=== PATIENT | female | born 1995 | race Caucasian/White ===

== ENCOUNTER 2019-11-15 07:41 | Day surgery (SDC) | payer BC ==
[~2019-11-15 07:41] MED LIST: Lactated Ringers 1,000 ML IV SCH; Sodium Chloride 0.9% 10 ML SDV IV PRN; Sodium Chloride 0.9% 10 ML Syringe FLUSH PRN; Sodium Chloride 0.9% 2.5 ML Syringe FLUSH PRN
[2019-11-15] MEDS ORDERED: Doxycycline 100 MG Cap PO ONE ×4 (08:00→11:00)
--- NOTE | 2019-11-15 08:25 | PCM.PREANE ---
Preanesthetic Assessment - Anesthesia/Transfusion/Family Hx Anesthesia History: Prior Anesthesia Without Reaction Family History of Anesthesia Reaction: No Transfusion History: No Prior Transfusion(s) Intubation History: Unknown - Review of Systems General: No Symptoms Pulmonary: No Symptoms Cardiovascular: No Symptoms Gastrointestinal: No Symptoms Neurological: No Symptoms Other: Reports: None - Physical Assessment Vital Signs: Last Vital Signs Temp 36.9 C 11/15/19 08:03 Pulse 75 11/15/19 08:03 Resp 16 11/15/19 08:03 BP 112/63 11/15/19 08:03 Pulse Ox 100 11/15/19 08:03 Height: 5 ft Weight: 68.946 kg ASA Class: 2 Mental Status: Alert & Oriented x3 Airway Class: Mallampati = 1 Dentition: Reports: Normal Dentition Thyro-Mental Finger Breadths: 3 Mouth Opening Finger Breadths: 3 ROM/Head Extension: Full Lungs: Clear to Auscultation, Normal Respiratory Effort Cardiovascular: Regular Rate, Regular Rhythm - Allergies Allergies/Adverse Reactions: Allergies Allergy/AdvReac Type Severity Reaction Status Date / Time No Known Allergies Allergy Verified 11/12/19 13:07 - Blood Blood Available: No - Anesthesia Plan Pre-Op Medication Ordered: None - Acknowledgements Anesthesia Type Planned: General Anesthesia Pt an Appropriate Candidate for the Planned Anesthesia: Yes Alternatives and Risks of Anesthesia Discussed w Pt/Guardian: Yes Pt/Guardian Understands and Agrees with Anesthesia Plan: Yes PreAnesthesia Questionnaire HEENT History: Reports: None Cardiovascular History: Reports: None Respiratory History: Reports: Asthma (mild) Gastrointestinal History: Reports: None Genitourinary History: Reports: None 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: Reports: Other (See Below) (first trimester miscarriage) Musculoskeletal History: Reports: None Neurological History: Reports: None Psychiatric History: Reports: None Endocrine/Metabolic History: Reports: None Hematologic History: Reports: None Immunologic History: Reports: None Oncologic (Cancer) History: Reports: None Dermatologic History: Reports: None - Past Surgical History Head Surgeries/Procedures: Reports: None HEENT Surgical History: Reports: Oral Surgery Cardiovascular Surgical History: Reports: None Respiratory Surgical History: Reports: None GI Surgical History: Reports: None Female Surgical History: Reports: None Endocrine Surgical History: Reports: None Neurological Surgical History: Reports: None Musculoskeletal Surgical History: Reports: None Oncologic Surgical History: Reports: None Dermatological Surgical History: Reports: None - SUBSTANCE USE Smoking Status *Q: Never Smoker - HOME MEDS Home Medications: Home Meds Albuterol [Ventolin HFA] 1 - 2 puff INH ASDIRECTED PRN 10/18/19 [History] Fluticasone/Salmeterol [Advair 250-50 Diskus] 1 puff INH QAM 10/18/19 [History] Fexofenadine [Idalia] 180 mg PO DAILY 11/12/19 [History] - CURRENT (IN HOUSE) MEDS Current Meds: Current Medications Doxycycline Hyclate (Vibramycin) 200 mg PO ONETIME ONE Stop: 11/15/19 08:31 Lactated Ringer's (Ringers, Lactated) 1,000 mls @ 500 mls/hr IV BOLUS MALLORY Sodium Chloride (Saline Flush) 10 ml FLUSH ASDIRECTED PRN PRN Reason: Keep Vein Open Sodium Chloride (Saline Flush) 2.5 ml FLUSH ASDIRECTED PRN PRN Reason: Keep Vein Open Sodium Chloride (Normal Saline) 10 ml IV ASDIRECTED PRN PRN Reason: IV Use Sodium Chloride (Saline Flush) 10 ml FLUSH ASDIRECTED PRN PRN Reason: Keep Vein Open Sodium Chloride (Saline Flush) 2.5 ml FLUSH ASDIRECTED PRN PRN Reason: Keep Vein Open Sodium Chloride (Normal Saline) 10 ml IV ASDIRECTED PRN PRN Reason: IV Use
[2019-11-15] MEDS ORDERED: fentaNYL 100 MCG/2 ML SDV ONE (09:17)
[2019-11-15] MEDS ORDERED: Propofol 200 MG/20 ML SDV ONE (09:17)
[2019-11-15] MEDS ORDERED: Midazolam 1 MG/ML 2 ML SDV ONE (09:17)
[2019-11-15] MEDS ORDERED: Ondansetron 4 MG/2 ML SDV ONE (09:51)
[2019-11-15] MEDS ORDERED: Dexamethasone 4 MG/ML 5 ML MDV ONE (09:51)
[2019-11-15] MEDS ORDERED: Atropine 0.1 MG/ML 10 ML Syringe IVPUSH PRN ×2 (09:59)
[2019-11-15] MEDS ORDERED: fentaNYL 100 MCG/2 ML SDV IVPUSH PRN (09:59)
[2019-11-15] MEDS ORDERED: Albuterol 0.083% 2.5 MG/3 ML Neb Soln NEB PRN (09:59)
[2019-11-15] MEDS ORDERED: EPINEPHrine 1:10,000 1 MG/10 ML Syringe IVPUSH PRN (09:59)
[2019-11-15] MEDS ORDERED: 50% Dextrose in Water 50 ML Syringe IVPUSH PRN (09:59)
[2019-11-15] MEDS ORDERED: Naloxone 0.4 MG/ML Syringe IVPUSH PRN (09:59)
[2019-11-15] MEDS ORDERED: HYDROmorphone 2 MG/ML Syringe IVPUSH PRN (10:00)
[2019-11-15] MEDS ORDERED: Acetaminophen/oxyCODONE 325-5 MG Tab PO PRN (10:10)
--- NOTE | 2019-11-15 10:14 | PCM.OPNOTE ---
- General Post-Op/Procedure Note Date of Surgery/Procedure: 11/15/19 Operative Procedure(s): Suction Dilatation and Curettage Findings: EUA showed 8 week anteverted uterus Pre Op Diagnosis: Incomplete Post-Op Diagnosis: same Anesthesia Technique: General ET Tube Primary Surgeon: Hamida Raya Anesthesia Provider: Julia Lazo Pathology: Product of conception Fluid Replacement, Intraop: 1,000 EBL in mLs: 5 Complications: None Condition: Good
--- NOTE | 2019-11-15 10:34 | PCM.POSTAN ---
POST ANESTHESIA ASSESSMENT - MENTAL STATUS Mental Status: Alert - VITAL SIGNS Vital Signs: Last Vital Signs Temp 36.1 C 11/15/19 10:13 Pulse 79 11/15/19 10:28 Resp 13 11/15/19 10:28 BP 117/56 L 11/15/19 10:28 Pulse Ox 99 11/15/19 10:28 - RESPIRATORY Respiratory Status: Respiratory Rate WNL - CARDIOVASCULAR CV Status: Pulse Rate WNL - GASTROINTESTINAL GI Status: No Symptoms - POST OP HYDRATION Hydration Status: Adequate & Stable
--- NOTE | 2019-11-15 11:33 | PCM48HPAN ---
Post Anesthesia Note - EVALUATION WITHIN 48HRS OF ANESTHETIC Vital Signs in Normal Range: Yes Patient Participated in Evaluation: Yes Respiratory Function Stable: Yes Airway Patent: Yes Cardiovascular Function Stable: Yes Hydration Status Stable: Yes Pain Control Satisfactory: Yes Nausea and Vomiting Control Satisfactory: Yes Mental Status Recovered: Yes Vital Signs: Last Vital Signs Temp 36.1 C 11/15/19 10:13 Pulse 77 11/15/19 10:33 Resp 13 11/15/19 10:33 BP 116/58 L 11/15/19 10:33 Pulse Ox 99 11/15/19 10:33 - COMMENTS/OBSERVATIONS Free Text/Narrative:: no anesthesia problems
--- NOTE | 2019-11-15 14:23 | OR ---
SURGEON: CARLOS TADEO DATE OF PROCEDURE: 11/15/2019 PREOPERATIVE DIAGNOSIS: A 23-year-old with incomplete , retained products POSTOPERATIVE DIAGNOSIS: A 23-year-old with incomplete , retained products PROCEDURE: Suction dilatation and curettage. ESTIMATED BLOOD LOSS: 5 mL. IV FLUID: 1000. ANESTHESIA: General. COMPLICATIONS: None. PATHOLOGY: Product of conception. BRIEF HISTORY: A 23-year-old who came in for new OB appointment, was found to have a missed AB. The patient desired suction curettage, which she declined and wanted a medical management. She had received Cytotec. The patient came for a followup visit, also noted to have some bleeding, and she had ultrasound done that showed some retained product. As a result, the patient was counseled for Cytotec replacement versus the suction D and C. The patient has opted for a suction D and C. She was explained the risks, benefits, and alternatives. Risks include infection, bleeding, damage to the surrounding structures. The patient was given the opportunity to ask questions. DESCRIPTION OF PROCEDURE: The patient was taken to the operating room where she was placed in the dorsal lithotomy position with Jaun stirrups. She was prepared and draped in the dorsal lithotomy position with the Jaun stirrups under sterile conditions. The vagina was prepped in normal sterile fashion and a straight catheter was done. The cervix was exposed with the bivalve speculum and the anterior lip of the cervix was grasped with the Allis forceps. The cervix was dilated to accommodate the 8 mm curved curette. The suction curette was advanced to the fundus and the suction was started. A moderate amount of product of conception was retrieved. Then, the size 3 sharp curette was placed inside the uterus to the fundus and gentle curette on every side. Then again, the suction curette was placed in without any difficulty and the remaining debris was removed from the uterus. The product was retrieved. The suction was then removed and the speculum was removed. Allis was removed. The patient tolerated the procedure well. All instrument and pad counts were correct x2. The patient tolerated the procedure and will go home with 100 mg of doxycycline. She will follow up in 2 weeks in the clinic. The patient tolerated the procedure well and was taken to the recovery room in stable condition. ISAIAH / GEM /[id number] FELIBERTO
== END 2019-11-15 11:32 | disposition home or self-care (01) ==
LOC: MW.SDS 07:41
PROVIDERS: ATTEND Obstetrics & Gynecology
DX: O03.4 Incomplete spontaneous abortion without complication (principal); J45.909 Unspecified asthma, uncomplicated; Z79.51 Long term (current) use of inhaled steroids; Z91.09 Other allergy status, other than to drugs and biological substances
CPT/HCPCS: 36415; 59812; 85027; 86850; 86900; 86901; A9270; J0131; J1100; J2001; J2250; J2405; J2704; J3010; J7120

== ENCOUNTER 2021-04-11 03:02 | Inpatient (IN) | payer BC ==
[2021-04-11] MEDS ORDERED: Misoprostol 200 MCG Tab PO PRN (04:04)
[2021-04-11] MEDS ORDERED: Sodium Chloride 0.9% 10 ML Syringe FLUSH PRN (04:04)
[2021-04-11] MEDS ORDERED: Nalbuphine 10 MG/1 ML Vial IVPUSH PRN (04:04)
[2021-04-11] MEDS ORDERED: Butorphanol 1 MG/ML SDV IVPUSH PRN (04:04)
[2021-04-11] MEDS ORDERED: Lidocaine 1% 50 ML MDV INJECT PRN (04:04)
[2021-04-11] MEDS ORDERED: Water For Irrigation,Sterile 1,000 ML Container IRR PRN (04:04)
[2021-04-11] MEDS ORDERED: Sodium Chloride 0.9% 10 ML SDV IV PRN (04:04)
[2021-04-11] MEDS ORDERED: Methylergonovine 0.2 MG/1 ML Amp IM PRN (04:04)
[2021-04-11] MEDS ORDERED: Sodium Chloride 0.9% 2.5 ML Syringe FLUSH PRN (04:04)
[2021-04-11] MEDS ORDERED: Carboprost Tromethamine 250 MCG/1 ML Amp IM PRN (04:04)
[2021-04-11] MEDS ORDERED: Tranexamic Acid 1,000 MG in Sodium Chloride 0.9% 100 ML IV PRN (04:04)
[2021-04-11] MEDS ORDERED: Terbutaline 1 MG/ML SDV SUBCUT PRN (04:07)
[2021-04-11] MEDS ORDERED: Misoprostol 25 MCG (1/4 of 100 MCG) Tab VAG PRN (04:07)
[2021-04-11] MEDS ORDERED: Oxytocin/0.9 % Sodium Chloride 30 UNIT/500 ML BAG IV SCH (04:15)
[2021-04-11] MEDS: Misoprostol 25 MCG (1/4 of 100 MCG) Tab VAG PRN ×3 (08:39→16:55)
[2021-04-11 11:50] LABS: BLOOD UREA NITROGEN,BUN 12 mg/dL (7.0-18.0); CARBON DIOXIDE,CO2 22.7 mmol/L (21.0-32.0); CHLORIDE,CL 104 mmol/L (98-107); GLUCOSE RANDOM 70 mg/dL (74-106); POTASSIUM,K 3.9 mmol/L (3.5-5.1); SODIUM,NA 138 mmol/L (136-145)
[2021-04-11] MEDS: Lactated Ringers 1,000 ML IV SCH ×2 (21:55→22:56)
[2021-04-11] MEDS: Oxytocin/0.9 % Sodium Chloride 30 UNIT/500 ML BAG IV SCH (22:04)
[2021-04-11] MEDS ORDERED: Bupivacaine 0.25% 10 ML SDV ONE (22:20)
[2021-04-11] MEDS ORDERED: Ropivacaine HCl/PF 200 ML ONE (22:20)
--- NOTE | 2021-04-11 22:51 | PCM.PREANE ---
Preanesthetic Assessment - Anesthesia/Transfusion/Family Hx Anesthesia History: Prior Anesthesia Reaction Other Type of Anesthesia Reaction Comment: difficult breathing Transfusion History: No Prior Transfusion(s) Intubation History: Unknown - Review of Systems General: No Symptoms Pulmonary: No Symptoms Cardiovascular: No Symptoms Gastrointestinal: No Symptoms Neurological: No Symptoms Other: Reports: None - Physical Assessment NPO Status Date: 04/11/21 NPO Status Time: 18:00 Height: 5 ft Weight: 207 lb ASA Class: 2 Mental Status: Alert & Oriented x3 Dentition: Reports: Normal Dentition ROM/Head Extension: Full Lungs: Clear to Auscultation, Normal Respiratory Effort Cardiovascular: Regular Rate, Regular Rhythm - Lab Values: Laboratory Last Values WBC 7.73 K/uL (4.0-11.0) 04/11/21 03:55 RBC 3.40 M/uL (4.30-5.90) L 04/11/21 03:55 Hgb 10.7 g/dL (12.0-16.0) L 04/11/21 03:55 Hct 31.3 % (36.0-46.0) L 04/11/21 03:55 MCV 92.1 fL (80.0-98.0) 04/11/21 03:55 MCH 31.5 pg (27.0-32.0) 04/11/21 03:55 MCHC 34.2 g/dL (31.0-37.0) 04/11/21 03:55 RDW Std Deviation 46.0 fl (28.0-62.0) 04/11/21 03:55 RDW Coeff of June 14 % (11.0-15.0) 04/11/21 03:55 Plt Count 262 K/uL (150-400) 04/11/21 03:55 MPV 10.70 fL (7.40-12.00) 04/11/21 03:55 Nucleated RBC % 0.0 /100WBC 04/11/21 03:55 Nucleated RBCs # 0 K/uL 04/11/21 03:55 Sodium 138 mmol/L (136-145) 04/11/21 11:16 Potassium 3.9 mmol/L (3.5-5.1) 04/11/21 11:16 Chloride 104 mmol/L (98-107) 04/11/21 11:16 Carbon Dioxide 22.7 mmol/L (21.0-32.0) 04/11/21 11:16 BUN 12 mg/dL (7.0-18.0) 04/11/21 11:16 Creatinine 0.7 mg/dL (0.6-1.0) 04/11/21 11:16 Est Cr Clr Drug Dosing 86.71 mL/min 04/11/21 11:16 Estimated GFR (MDRD) > 60.0 ml/min 04/11/21 11:16 Glucose 70 mg/dL (74-106) L 04/11/21 11:16 Uric Acid 5.4 mg/dL (2.6-7.2) 04/11/21 11:16 Calcium 8.6 mg/dL (8.5-10.1) 04/11/21 11:16 Total Bilirubin 0.3 mg/dL (0.2-1.0) 04/11/21 11:16 AST 21 IU/L (15-37) 04/11/21 11:16 ALT 22 IU/L (14-63) 04/11/21 11:16 Alkaline Phosphatase 145 U/L (46-116) H 04/11/21 11:16 Total Protein 6.2 g/dL (6.4-8.2) L 04/11/21 11:16 Albumin 2.6 g/dL (3.4-5.0) L 04/11/21 11:16 Globulin 3.6 g/dL (2.6-4.0) 04/11/21 11:16 Albumin/Globulin Ratio 0.7 (0.9-1.6) L 04/11/21 11:16 Ur Random Creatinine 116.2 mg/dL 04/11/21 11:44 U Random Total Protein 15.9 mg/dL (<11.9) H 04/11/21 11:44 Protein/Creatinin Ratio 0.1 04/11/21 11:44 Blood Type A POSITIVE 04/11/21 03:55 Antibody Screen NEGATIVE 04/11/21 03:55 - Allergies Allergies/Adverse Reactions: Allergies Allergy/AdvReac Type Severity Reaction Status Date / Time pollen Allergy Difficulty Uncoded 03/22/21 14:16 Breathing - Blood Blood Available: Yes Product(s) Available: PRBC - Anesthesia Plan Pre-Op Medication Ordered: None - Acknowledgements Anesthesia Type Planned: Epidural Pt an Appropriate Candidate for the Planned Anesthesia: Yes Alternatives and Risks of Anesthesia Discussed w Pt/Guardian: Yes Pt/Guardian Understands and Agrees with Anesthesia Plan: Yes PreAnesthesia Questionnaire HEENT History: Reports: None Cardiovascular History: Reports: None Respiratory History: Reports: Asthma Gastrointestinal History: Reports: None Genitourinary History: Reports: None 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: , 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 Musculoskeletal History: Reports: None Neurological History: Reports: None Psychiatric History: Reports: None Endocrine/Metabolic History: Reports: None Hematologic History: Reports: None Immunologic History: Reports: None Oncologic (Cancer) History: Reports: None Dermatologic History: Reports: None - Infectious Disease History Infectious Disease History: Reports: Novel Coronavirus - Past Surgical History Head Surgeries/Procedures: Reports: None HEENT Surgical History: Reports: Oral Surgery Cardiovascular Surgical History: Reports: None Respiratory Surgical History: Reports: None GI Surgical History: Reports: None Female Surgical History: Reports: None Endocrine Surgical History: Reports: None Neurological Surgical History: Reports: None Musculoskeletal Surgical History: Reports: None Oncologic Surgical History: Reports: None Dermatological Surgical History: Reports: None - SUBSTANCE USE Tobacco Use Status *Q: Never Tobacco User Second Hand Smoke Exposure: No Recreational Drug Use History: No - HOME MEDS Home Medications: Home Meds Albuterol [Ventolin HFA] 1 - 2 puff INH ASDIRECTED PRN 10/18/19 [History] Fluticasone Propion/Salmeterol [Advair 250-50 Diskus] 1 puff INH QAM 10/18/19 [History] Fexofenadine [Idalia] 180 mg PO DAILY 11/12/19 [History] Omeprazole Magnesium [Prilosec Otc] 20 mg PO DAILY 03/22/21 [History] - CURRENT (IN HOUSE) MEDS Current Meds: Current Medications Butorphanol Tartrate (Butorphanol 1 Mg/Ml Sdv) 1 mg IVPUSH Q1H PRN PRN Reason: Pain (severe 7-10) Carboprost Tromethamine (Carboprost Tromethamine 250 Mcg/1 Ml Amp) 250 mcg IM ASDIRECTED PRN PRN Reason: Post Hemorrhage Oxytocin/Sodium Chloride (Oxytocin 30 Unit/500 Ml-Ns) 30 unit in 500 mls @ 500 mls/hr IV TITRATE MALLORY Tranexamic Acid 1,000 mg/ (Sodium Chloride) 110 mls @ 660 mls/hr IV ONETIME PRN PRN Reason: Bleeding Lactated Ringer's (Ringers, Lactated) 1,000 mls @ 150 mls/hr IV ASDIRECTED MALLORY Last Admin: 04/11/21 21:55 Dose: 999 mls/hr Documented by: Oxytocin/Sodium Chloride (Oxytocin 30 Unit/500 Ml-Ns) 30 unit in 500 mls @ 2 mls/hr IV TITRATE MALLORY; Protocol Last Titration: 04/11/21 22:34 Dose: 4 munits/min, 4 mls/hr Documented by: Lidocaine HCl (Lidocaine 1% 50 Ml Mdv) 50 ml INJECT ONETIME PRN PRN Reason: Laceration repair Methylergonovine Maleate (Methylergonovine 0.2 Mg/1 Ml Amp) 0.2 mg IM ASDIRECTED PRN PRN Reason: Post Hemorrhage Misoprostol (Misoprostol 200 Mcg Tab) 200 mcg PO ONETIME PRN PRN Reason: Post Hemorrhage Misoprostol (Misoprostol 25 Mcg (1/4 Of 100 Mcg) Tab) 25 mcg VAG ONETIME PRN PRN Reason: Cervical Ripening Last Admin: 04/11/21 04:32 Dose: 25 mcg Documented by: Misoprostol (Misoprostol 25 Mcg (1/4 Of 100 Mcg) Tab) 25 mcg VAG Q4H PRN PRN Reason: Cervical Ripening Last Admin: 04/11/21 16:55 Dose: 25 mcg Documented by: Nalbuphine HCl (Nalbuphine 10 Mg/1 Ml Vial) 10 mg IVPUSH Q1H PRN PRN Reason: Pain (severe 7-10) Sodium Chloride (Sodium Chloride 0.9% 10 Ml Syringe) 10 ml FLUSH ASDIRECTED PRN PRN Reason: Keep Vein Open Sodium Chloride (Sodium Chloride 0.9% 2.5 Ml Syringe) 2.5 ml FLUSH ASDIRECTED PRN PRN Reason: Keep Vein Open Sodium Chloride (Sodium Chloride 0.9% 10 Ml Sdv) 10 ml IV ASDIRECTED PRN PRN Reason: IV Use Sterile Water (Water For Irrigation,Sterile 1,000 Ml Container) 1,000 ml IRR ASDIRECTED PRN PRN Reason: delivery Terbutaline Sulfate (Terbutaline 1 Mg/Ml Sdv) 0.25 mg SUBCUT ASDIRECTED PRN PRN Reason: Tacysystole Discontinued Medications Bupivacaine HCl (Bupivacaine 0.25% 10 Ml Sdv) Confirm Administered Dose 10 ml .ROUTE .STK-MED ONE Stop: 04/11/21 22:21 Ropivacaine (Naropin 0.2%) Confirm Administered Dose 200 mls @ as directed .ROUTE .STK-MED ONE Stop: 04/11/21 22:21 - Pre-Procedure Checklist Attending Provider Aware: Yes Chart Reviewed: Yes Consent Signed: Yes Labs Reviewed: Yes VS/FHR Reviewed: Yes Patient Identification Confirmation Method: Reports: Verbal Patient Pt an Appropriate Candidate for the Planned Anesthesia: Yes Alternatives and Risks of Anesthesia Discussed w Pt/Guardian: Yes - Procedure Procedure Start Date: 04/11/21 Procedure Start Time: 22:[address]: Reports: Blood Pressure, Heart Rate, SPO2 Functional IV: Yes Safety Measures: Reports: Patient Identified, Procedure Verified, Site Verified, Procedure Time Out Patient Position: Reports: Sitting Prep: Reports: Betadine x3, Sterile Drape Local Anesthetic: Reports: Intradermal Wheal w Lidocaine 1% Regional Placement Level: Reports: L3-4 Needle: Reports: 17 g Touhy Approach: Reports: Midline Technique: Reports: ROBBIE Plastic Syringe Parasthesia: Reports: None Fluid Obtained: Reports: None Test Dose Time: 22:32 Test Dose Medication: Reports: Lidocaine 1.5% w Epinephrine 1:200,000 Test Dose Response: Reports: Negative Loading Dose Time: 22:32 Loading Dose Medication: bupivicaine 0.25% 10cc Loading Dose Patient Position: sitting Continuous Infusion Start Time: 22:25 Continuous Infusion Medication: ropivicaine 0.2% Continuous Infusion Rate: 14 Continuous Infusion PCS Bolus Option: 4 Continuous Infusion Lockout Dose (cc/hr): 26 Patient Position Post Placement: Reports: Supline/ADAM VS and FHR Monitored in Unit Post Placement: Yes Procedure End Date: 04/11/21 Procedure End Time: 23:25
[2021-04-12] MEDS: Lactated Ringers 1,000 ML IV SCH ×4 (05:59→23:38)
[2021-04-12] MEDS ORDERED: Ropivacaine HCl/PF 200 ML ONE ×2 (12:20→23:43)
[2021-04-12] MEDS: Oxytocin/0.9 % Sodium Chloride 30 UNIT/500 ML BAG IV SCH (13:49)
[2021-04-13] MEDS ORDERED: Citric Acid/Sodium Citrate Solution 30 ML Cup PO ONE (06:27)
[2021-04-13] MEDS ORDERED: ceFAZolin 2 GM in Premix Bag 1 BAG IV ONE (06:27)
[2021-04-13] MEDS ORDERED: Morphine PF 10 MG/10 ML SDV ONE (06:32)
[2021-04-13] MEDS ORDERED: Ondansetron 4 MG/2 ML SDV ONE (06:33)
[2021-04-13] MEDS ORDERED: Lidocaine 2% 5 ML SDV ONE (06:33)
[2021-04-13] MEDS ORDERED: Sodium Chloride 0.9% 20 ML ONE (06:45)
[2021-04-13] MEDS ORDERED: ceFAZolin 1 GM Vial ONE (06:45)
[2021-04-13] MEDS: Lactated Ringers 1,000 ML IV SCH ×2 (06:46→08:52)
[2021-04-13] MEDS ORDERED: Oxytocin 10 Units/1 ML SDV ONE (07:00)
[2021-04-13] MEDS ORDERED: Albuterol 0.083% 2.5 MG/3 ML Neb Soln NEB PRN (07:48)
[2021-04-13] MEDS ORDERED: HYDROmorphone 2 MG/ML Syringe IVPUSH PRN (07:48)
[2021-04-13] MEDS ORDERED: ePHEDrine 50 MG/ML SDV IVPUSH PRN (07:48)
[2021-04-13] MEDS ORDERED: diphenhydrAMINE 50 MG/ML SDV IVPUSH PRN ×2 (07:48→09:15)
[2021-04-13] MEDS ORDERED: Ondansetron 4 MG/2 ML SDV IVPUSH PRN ×3 (07:48→09:15)
[2021-04-13] MEDS ORDERED: Metoclopramide 10 MG/2 ML SDV IVPUSH PRN (07:48)
[2021-04-13] MEDS ORDERED: Morphine 2 MG/ML SYRINGE IVPUSH PRN (07:48)
[2021-04-13] MEDS ORDERED: Naloxone 0.4 MG/ML Syringe IVPUSH PRN ×2 (07:48)
[2021-04-13] MEDS ORDERED: fentaNYL 100 MCG/2 ML SDV IVPUSH PRN ×2 (07:48)
[2021-04-13] MEDS ORDERED: Nalbuphine 10 MG/1 ML Vial IVPUSH PRN (07:48)
--- NOTE | 2021-04-13 07:48 | PCM.PREANE ---
Preanesthetic Assessment - Anesthesia/Transfusion/Family Hx Anesthesia History: Prior Anesthesia Reaction Other Type of Anesthesia Reaction Comment: difficult breathing Transfusion History: No Prior Transfusion(s) Intubation History: Unknown - Review of Systems General: No Symptoms Pulmonary: No Symptoms Cardiovascular: No Symptoms Gastrointestinal: No Symptoms Neurological: No Symptoms Other: Reports: None - Physical Assessment NPO Status Date: 04/11/21 NPO Status Time: 18:00 Height: 5 ft Weight: 207 lb ASA Class: 3 Mental Status: Alert & Oriented x3 Airway Class: Mallampati = 2 Dentition: Reports: Normal Dentition Thyro-Mental Finger Breadths: 3 Mouth Opening Finger Breadths: 3 ROM/Head Extension: Full Lungs: Clear to Auscultation, Normal Respiratory Effort Cardiovascular: Regular Rate, Regular Rhythm - Lab Values: Laboratory Last Values WBC 7.73 K/uL (4.0-11.0) 04/11/21 03:55 RBC 3.40 M/uL (4.30-5.90) L 04/11/21 03:55 Hgb 10.7 g/dL (12.0-16.0) L 04/11/21 03:55 Hct 31.3 % (36.0-46.0) L 04/11/21 03:55 MCV 92.1 fL (80.0-98.0) 04/11/21 03:55 MCH 31.5 pg (27.0-32.0) 04/11/21 03:55 MCHC 34.2 g/dL (31.0-37.0) 04/11/21 03:55 RDW Std Deviation 46.0 fl (28.0-62.0) 04/11/21 03:55 RDW Coeff of June 14 % (11.0-15.0) 04/11/21 03:55 Plt Count 262 K/uL (150-400) 04/11/21 03:55 MPV 10.70 fL (7.40-12.00) 04/11/21 03:55 Nucleated RBC % 0.0 /100WBC 04/11/21 03:55 Nucleated RBCs # 0 K/uL 04/11/21 03:55 Sodium 138 mmol/L (136-145) 04/11/21 11:16 Potassium 3.9 mmol/L (3.5-5.1) 04/11/21 11:16 Chloride 104 mmol/L (98-107) 04/11/21 11:16 Carbon Dioxide 22.7 mmol/L (21.0-32.0) 04/11/21 11:16 BUN 12 mg/dL (7.0-18.0) 04/11/21 11:16 Creatinine 0.7 mg/dL (0.6-1.0) 04/11/21 11:16 Est Cr Clr Drug Dosing 86.71 mL/min 04/11/21 11:16 Estimated GFR (MDRD) > 60.0 ml/min 04/11/21 11:16 Glucose 70 mg/dL (74-106) L 04/11/21 11:16 Uric Acid 5.4 mg/dL (2.6-7.2) 04/11/21 11:16 Calcium 8.6 mg/dL (8.5-10.1) 04/11/21 11:16 Total Bilirubin 0.3 mg/dL (0.2-1.0) 04/11/21 11:16 AST 21 IU/L (15-37) 04/11/21 11:16 ALT 22 IU/L (14-63) 04/11/21 11:16 Alkaline Phosphatase 145 U/L (46-116) H 04/11/21 11:16 Total Protein 6.2 g/dL (6.4-8.2) L 04/11/21 11:16 Albumin 2.6 g/dL (3.4-5.0) L 04/11/21 11:16 Globulin 3.6 g/dL (2.6-4.0) 04/11/21 11:16 Albumin/Globulin Ratio 0.7 (0.9-1.6) L 04/11/21 11:16 Ur Random Creatinine 116.2 mg/dL 04/11/21 11:44 U Random Total Protein 15.9 mg/dL (<11.9) H 04/11/21 11:44 Protein/Creatinin Ratio 0.1 04/11/21 11:44 Blood Type A POSITIVE 04/11/21 03:55 Antibody Screen NEGATIVE 04/11/21 03:55 - Allergies Allergies/Adverse Reactions: Allergies Allergy/AdvReac Type Severity Reaction Status Date / Time pollen Allergy Difficulty Uncoded 03/22/21 14:16 Breathing - Blood Blood Available: Yes Product(s) Available: PRBC - Acknowledgements Anesthesia Type Planned: Spinal Pt an Appropriate Candidate for the Planned Anesthesia: Yes Alternatives and Risks of Anesthesia Discussed w Pt/Guardian: Yes Pt/Guardian Understands and Agrees with Anesthesia Plan: Yes PreAnesthesia Questionnaire HEENT History: Reports: None Cardiovascular History: Reports: None Respiratory History: Reports: Asthma, Other (See Below) (Covid positive but assymptomatic) Gastrointestinal History: Reports: None Genitourinary History: Reports: None [employer] History: Reports: , Spontaneous Musculoskeletal History: Reports: None Neurological History: Reports: None Psychiatric History: Reports: None Endocrine/Metabolic History: Reports: None Hematologic History: Reports: None Immunologic History: Reports: None Oncologic (Cancer) History: Reports: None Dermatologic History: Reports: None - Infectious Disease History Infectious Disease History: Reports: Novel Coronavirus - Past Surgical History Head Surgeries/Procedures: Reports: None HEENT Surgical History: Reports: Oral Surgery Cardiovascular Surgical History: Reports: None Respiratory Surgical History: Reports: None GI Surgical History: Reports: None Female Surgical History: Reports: None Endocrine Surgical History: Reports: None Neurological Surgical History: Reports: None Musculoskeletal Surgical History: Reports: None Oncologic Surgical History: Reports: None Dermatological Surgical History: Reports: None - SUBSTANCE USE Tobacco Use Status *Q: Never Tobacco User Second Hand Smoke Exposure: No Recreational Drug Use History: No - HOME MEDS Home Medications: Home Meds Albuterol [Ventolin HFA] 1 - 2 puff INH ASDIRECTED PRN 10/18/19 [History] Fluticasone Propion/Salmeterol [Advair 250-50 Diskus] 1 puff INH QAM 10/18/19 [History] Fexofenadine [Idalia] 180 mg PO DAILY 11/12/19 [History] Omeprazole Magnesium [Prilosec Otc] 20 mg PO DAILY 03/22/21 [History] - CURRENT (IN HOUSE) MEDS Current Meds: Current Medications Butorphanol Tartrate (Butorphanol 1 Mg/Ml Sdv) 1 mg IVPUSH Q1H PRN PRN Reason: Pain (severe 7-10) Carboprost Tromethamine (Carboprost Tromethamine 250 Mcg/1 Ml Amp) 250 mcg IM ASDIRECTED PRN PRN Reason: Post Hemorrhage Oxytocin/Sodium Chloride (Oxytocin 30 Unit/500 Ml-Ns) 30 unit in 500 mls @ 500 mls/hr IV TITRATE MALLORY Tranexamic Acid 1,000 mg/ (Sodium Chloride) 110 mls @ 660 mls/hr IV ONETIME PRN PRN Reason: Bleeding Lactated Ringer's (Ringers, Lactated) 1,000 mls @ 150 mls/hr IV ASDIRECTED MALLORY Last Admin: 04/13/21 06:46 Dose: 150 mls/hr Documented by: Oxytocin/Sodium Chloride (Oxytocin 30 Unit/500 Ml-Ns) 30 unit in 500 mls @ 2 mls/hr IV TITRATE MALLORY; Protocol Last Titration: 04/13/21 06:20 Dose: 0 munits/min, 0 mls/hr Documented by: Lidocaine HCl (Lidocaine 1% 50 Ml Mdv) 50 ml INJECT ONETIME PRN PRN Reason: Laceration repair Methylergonovine Maleate (Methylergonovine 0.2 Mg/1 Ml Amp) 0.2 mg IM ASDIRECTED PRN PRN Reason: Post Hemorrhage Misoprostol (Misoprostol 200 Mcg Tab) 200 mcg PO ONETIME PRN PRN Reason: Post Hemorrhage Misoprostol (Misoprostol 25 Mcg (1/4 Of 100 Mcg) Tab) 25 mcg VAG ONETIME PRN PRN Reason: Cervical Ripening Last Admin: 04/11/21 04:32 Dose: 25 mcg Documented by: Misoprostol (Misoprostol 25 Mcg (1/4 Of 100 Mcg) Tab) 25 mcg VAG Q4H PRN PRN Reason: Cervical Ripening Last Admin: 04/11/21 16:55 Dose: 25 mcg Documented by: Nalbuphine HCl (Nalbuphine 10 Mg/1 Ml Vial) 10 mg IVPUSH Q1H PRN PRN Reason: Pain (severe 7-10) Sodium Chloride (Sodium Chloride 0.9% 10 Ml Syringe) 10 ml FLUSH ASDIRECTED PRN PRN Reason: Keep Vein Open Sodium Chloride (Sodium Chloride 0.9% 2.5 Ml Syringe) 2.5 ml FLUSH ASDIRECTED PRN PRN Reason: Keep Vein Open Sodium Chloride (Sodium Chloride 0.9% 10 Ml Sdv) 10 ml IV ASDIRECTED PRN PRN Reason: IV Use Sterile Water (Water For Irrigation,Sterile 1,000 Ml Container) 1,000 ml IRR ASDIRECTED PRN PRN Reason: delivery Terbutaline Sulfate (Terbutaline 1 Mg/Ml Sdv) 0.25 mg SUBCUT ASDIRECTED PRN PRN Reason: Tacysystole Discontinued Medications Bupivacaine HCl (Bupivacaine 0.25% 10 Ml Sdv) Confirm Administered Dose 10 ml .ROUTE .STK-MED ONE Stop: 04/11/21 22:21 Cefazolin Sodium (Cefazolin 1 Gm Vial) Confirm Administered Dose 2 gm .ROUTE .STK-MED ONE Stop: 04/13/21 06:46 Citric Acid/Sodium Citrate (Citric Acid/Sodium Citrate Solution 30 Ml Cup) 30 ml PO ONETIME ONE Stop: 04/13/21 06:28 Ropivacaine (Naropin 0.2%) Confirm Administered Dose 200 mls @ as directed .ROUTE .STK-MED ONE Stop: 04/11/21 22:21 Ropivacaine (Naropin 0.2%) Confirm Administered Dose 200 mls @ as directed .ROUTE .STK-MED ONE Stop: 04/12/21 12:21 Ropivacaine (Naropin 0.2%) Confirm Administered Dose 200 mls @ as directed .ROUTE .STK-MED ONE Stop: 04/12/21 23:44 Cefazolin Sodium/Dextrose 2 gm (/ Premix) 50 mls @ 100 mls/hr IV ONETIME ONE Stop: 04/13/21 06:56 Sodium Chloride (Normal Saline) Confirm Administered Dose 20 mls @ as directed .ROUTE .STK-MED ONE Stop: 04/13/21 06:46 Lidocaine (Lidocaine 2% 5 Ml Sdv) Confirm Administered Dose 5 ml .ROUTE .STK-MED ONE Stop: 04/13/21 06:34 Morphine Sulfate (Morphine Pf 10 Mg/10 Ml Sdv) Confirm Administered Dose 10 mg .ROUTE .STK-MED ONE Stop: 04/13/21 06:33 Ondansetron HCl (Ondansetron 4 Mg/2 Ml Sdv) Confirm Administered Dose 4 mg .ROUTE .STK-MED ONE Stop: 04/13/21 06:34 Oxytocin (Oxytocin 10 Units/1 Ml Sdv) Confirm Administered Dose 30 unit .ROUTE .STK-MED ONE Stop: 04/13/21 07:01
[2021-04-13] MEDS ORDERED: Ketorolac 30 MG/ML SDV ONE (08:22)
--- NOTE | 2021-04-13 09:07 | PCM.POSTAN ---
POST ANESTHESIA ASSESSMENT - MENTAL STATUS Mental Status: Alert, Oriented - RESPIRATORY Respiratory Status: Respiratory Rate WNL, Airway Patent, O2 Saturation Stable - CARDIOVASCULAR CV Status: Pulse Rate WNL, Blood Pressure Stable - GASTROINTESTINAL GI Status: No Symptoms - POST OP HYDRATION Hydration Status: Adequate & Stable
--- NOTE | 2021-04-13 09:08 | PCM48HPAN ---
Post Anesthesia Note - EVALUATION WITHIN 48HRS OF ANESTHETIC Vital Signs in Normal Range: Yes Patient Participated in Evaluation: Yes Respiratory Function Stable: Yes Airway Patent: Yes Cardiovascular Function Stable: Yes Hydration Status Stable: Yes Pain Control Satisfactory: Yes Nausea and Vomiting Control Satisfactory: Yes Mental Status Recovered: Yes
[2021-04-13] MEDS ORDERED: Bisacodyl 10 MG Supp RECTAL PRN (09:15)
[2021-04-13] MEDS ORDERED: Misoprostol 200 MCG Tab RECTAL PRN (09:15)
[2021-04-13] MEDS ORDERED: Oxytocin 10 Units/1 ML SDV IM PRN (09:15)
[2021-04-13] MEDS ORDERED: Lanolin 100% Cream 7 GM Tube TOP PRN (09:15)
[2021-04-13] MEDS ORDERED: Tranexamic Acid 1,000 MG in Sodium Chloride 0.9% 100 ML IV PRN (09:15)
[2021-04-13] MEDS ORDERED: Methylergonovine 0.2 MG/1 ML Amp IM PRN (09:15)
[2021-04-13] MEDS ORDERED: Lactated Ringers 1,000 ML IV SCH (09:15)
[2021-04-13] MEDS: Ketorolac 30 MG/ML SDV IVPUSH SCH ×3 (09:30→21:00)
[2021-04-13] MEDS: Docusate Sodium 100 MG Cap PO SCH (21:02)
--- NOTE | 2021-04-14 00:44 | OR ---
SURGEON: Juan Francisco Cowan MD DATE OF PROCEDURE: 04/13/2021 INDICATION FOR PROCEDURE: A 25-year-old G3, P 0-0-2-0 at 39 weeks and 3 days admitted for induction of labor due to suspected macrosomia. The patient had serial growth ultrasounds with an estimated weight of 4300 g. She had otherwise uncomplicated . GBS negative. Induction was started with 4 doses of Cytotec. She progressed to 3 cm dilated. Pitocin was then started. She received an epidural with good pain control. AROM was performed with clear fluid. An IUPC was placed since she did not make cervical change from 3 cm after about 8 hours on Pitocin. She continued to make cervical change but was very slowly. After about 24 hours, she became 6 cm dilated and the head had descended to 0 station. In the next 3 hours, she did progress to fully dilated and with the urge to push. The heart rate tracing is mostly category 1 with periods of category 2 tracing with minimal variability. She then pushed with contractions for about 2.5 hours. However, she made minimal descent and the patient had become exhausted and was requesting a section. Discussed with the patient that her chances of vaginal delivery is low considering she had minimal descent with pushing and the baby appeared to be in OP presentation. Decision was made to proceed with delivery. PREOPERATIVE DIAGNOSES: 1. Metzger intrauterine at 39 weeks and 3 days. 2. Arrest of active phase of labor 3. Occiput posterior presentation. POSTOPERATIVE DIAGNOSES: 1. Metzger intrauterine at 39 weeks and 3 days. 2. Arrest of active phase of labor 3. Occiput posterior presentation. 4. Intrapartum hemorrhage PROCEDURE PERFORMED: Primary low transverse section. ANESTHESIOLOGIST: Dr. Melo Tovar. ANESTHESIA: Epidural, converted to spinal. FINDINGS: Viable male . scores 8 and 9. weight of 3940g. Nuchal cord x1. The baby was in direct OP presentation. There was a right lateral extension of the hysterotomy causing increased blood loss as well as uterine atony. ESTIMATED BLOOD LOSS: 1500 mL. DESCRIPTION OF PROCEDURE: The procedure was discussed with the patient. Risks include bleeding, infection, DVTs, and injury to surrounding organs including bladder and bowel and ureters. The patient expressed understanding. Consent was signed. The patient was brought to the operating room. She received 2 g Ancef IV and SCDs. Epidural was removed by Anesthesia and the spinal was placed. Monge catheter was already in place. The abdomen was prepped with chlorhexidine and the vagina prepped with Betadine in sterile fashion. The patient was draped and tested for analgesia. Spinal was adequate. A Pfannenstiel incision was made with a scalpel and dissected down to fascia. Sites of bleeding were noted and cauterized. The fascia was cleared of subcutaneous tissue. The fascia was incised in the midline and extended laterally with curved Arzola scissors. Germán clamps were placed on the superior fascial edge. The rectus muscles were by blunt dissection and using Arzola scissors. The same process was repeated for inferior fascial edge. The rectus muscles were in the midline. Peritoneum was identified, entered bluntly, and extended. The large Jaycob O retractor was placed in the peritoneal cavity. The bladder flap was made with gentle dissection of the vesicouterine peritoneum and pushing the bladder away from the lower uterine segment. The uterus was incised transversely at the lower uterine segment and extended bluntly. Clear amniotic fluid was noted. The infant's head was noted to be in direct occiput posterior position with a nuchal cord. I was not able to flex the 's head easily since the head was very engaged in the pelvis. Therefore, the 's head was rotated to OA position, then flexed, and brought out of the hysterotomy atraumatically. Fundal pressure was applied and the shoulder and body delivered without difficulty. The umbilical cord was clamped and cut after 60 seconds and no longer pulsating. The baby was pink, crying, and moving all extremities. It was handed over to nursery staff. The cord gases were obtained. Placenta was delivered manually and with traction on the umbilical cord. The uterine cavity was cleaned with a lap to remove all remaining membranes. Allis clamps were used to grasp the angles and lower edges of the incision. There was a lateral extension on the right side of the hysterotomy, which was bleeding profusely. It was clamped with Allis clamps. The uterine incision was closed in 2 layers; the first layer with running locking suture using 0 Monocryl, the second layer was an imbricated vertical running fashion using 0 Vicryl. Hemostasis was achieved after the repair. The uterus was initially hypotonic, but became firm as the hysterotomy was closed. The paracolic gutters were then cleared of any clots. The incision was irrigated and checked for hemostasis. The Jaycob O retractor was then removed. The peritoneum was grasped by hemostats and brought together in the midline. It was closed using 2-0 Vicryl in running fashion. The rectus muscles were reapproximated in the midline with a mattress suture using 2-0 Vicryl. The rectus muscle was examined and was found to be hemostatic. The fascia was closed using 0 Vicryl in running fashion. The subcutaneous tissue was irrigated and bleeding areas cauterized. The subcutaneous layer was brought together with 2-0 plain suture. The skin was closed in subcuticular fashion using 3-0 Monocryl on a Danish needle. A KAJLA wound vac was placed over the incision. The patient tolerated the procedure well and was transferred to the recovery room in stable condition. BRADLY RABAGO /[id number] FELIBERTO
[2021-04-14] MEDS: Ketorolac 30 MG/ML SDV IVPUSH SCH ×2 (03:13→09:46)
--- NOTE | 2021-04-14 08:24 | PCM.PNPP ---
- General Info Date of Service: 04/14/21 Functional Status: Reports: Pain Controlled, Tolerating Diet, Ambulating, Urinating - Review of Systems General: Reports: No Symptoms HEENT: Reports: No Symptoms Pulmonary: Reports: No Symptoms Cardiovascular: Reports: No Symptoms Gastrointestinal: Reports: No Symptoms Genitourinary: Reports: No Symptoms Musculoskeletal: Reports: No Symptoms Skin: Reports: No Symptoms Neurological: Reports: No Symptoms Psychiatric: Reports: No Symptoms - Patient Data Vital Signs - Most Recent: Last Vital Signs Temp 36.6 C 04/14/21 04:35 Pulse 89 04/14/21 07:00 Resp 18 04/14/21 07:00 BP 134/84 04/14/21 04:35 Pulse Ox 100 04/14/21 07:00 Weight - Most Recent: 207 lb I&O - Last 24 Hours: Intake & Output 04/13/21 04/14/21 04/14/21 22:59 06:59 14:59 Intake Total 1550 Output Total 400 1100 Balance -400 450 Lab Results - Last 24 Hours: Laboratory Results - last 24 hr 04/13/21 04/14/21 Range/Units 07:39 05:26 Hgb 7.1 L (12.0-16.0) g/dL Hct 20.6 L (36.0-46.0) % Cord ABG pH 7.285 (7.18-7.38) Cord ABG Base Excess -7 (-10--2) Cord VBG pH 7.355 (7.25-7.45) Cord VBG Base Excess -6 (-10--2) Med Orders - Current: Current Medications Albuterol (Albuterol 0.083% 2.5 Mg/3 Ml Neb Soln) 2.5 mg NEB ONETIME PRN PRN Reason: Wheezing Bisacodyl (Bisacodyl 10 Mg Supp) 10 mg RECTAL ONETIME PRN PRN Reason: Constipation Diphenhydramine HCl (Diphenhydramine 50 Mg/Ml Sdv) 12.5 mg IVPUSH Q2H PRN PRN Reason: Itching Diphenhydramine HCl (Diphenhydramine 50 Mg/Ml Sdv) 25 mg IVPUSH Q6H PRN PRN Reason: Itching or Nausea Last Admin: 04/13/21 10:50 Dose: 25 mg Documented by: Docusate Sodium (Docusate Sodium 100 Mg Cap) 100 mg PO BID [facility] Last Admin: 04/13/21 21:02 Dose: Not Given Documented by: Droperidol (Droperidol 5 Mg/2 Ml Sdv) 0.625 mg IVPUSH ONETIME PRN PRN Reason: Nausea/Vomiting Emollient Ointment (Lanolin 100% Cream 7 Gm Tube) 0 gm TOP ASDIRECTED PRN PRN Reason: Sore Nipples Last Admin: 04/14/21 03:13 Dose: 7 gm Documented by: Ephedrine Sulfate (Ephedrine 50 Mg/Ml Sdv) 10 mg IVPUSH Q5M PRN PRN Reason: Hypotension Fentanyl (Fentanyl 100 Mcg/2 Ml Sdv) 50 mcg IVPUSH Q1H PRN PRN Reason: Pain (severe 7-10) Fentanyl (Fentanyl 100 Mcg/2 Ml Sdv) 50 mcg IVPUSH Q5M PRN PRN Reason: Pain (mild 1-3) Hydromorphone HCl (Hydromorphone 2 Mg/Ml Syringe) 1 mg IVPUSH Q10M PRN PRN Reason: Pain (moderate 4-6) Lactated Ringer's (Ringers, Lactated) 1,000 mls @ 125 mls/hr IV ASDIRECTED [facility] Last Admin: 04/13/21 19:58 Dose: 125 mls/hr Documented by: Tranexamic Acid 1,000 mg/ (Sodium Chloride) 110 mls @ 660 mls/hr IV ONETIME PRN PRN Reason: Bleeding Ibuprofen (Ibuprofen 800 Mg Tab) 800 mg PO Q8H PRN PRN Reason: mild pain or fever Ketorolac Tromethamine (Ketorolac 30 Mg/Ml Sdv) 30 mg IVPUSH Q6H [facility] Stop: 04/14/21 09:16 Last Admin: 04/14/21 03:13 Dose: 30 mg Documented by: Methylergonovine Maleate (Methylergonovine 0.2 Mg/1 Ml Amp) 0.2 mg IM ONETIME PRN PRN Reason: Excessive Vaginal Bleeding Metoclopramide HCl (Metoclopramide 10 Mg/2 Ml Sdv) 10 mg IVPUSH ONETIME PRN PRN Reason: Nausea/Vomiting Misoprostol (Misoprostol 200 Mcg Tab) 1,000 mcg RECTAL ONETIME PRN PRN Reason: excessive bleeding Morphine Sulfate (Morphine 2 Mg/Ml Syringe) 2 mg IVPUSH Q10M PRN PRN Reason: Pain (severe 7-10) Last Admin: 04/13/21 10:09 Dose: 2 mg Documented by: Nalbuphine HCl (Nalbuphine 10 Mg/1 Ml Vial) 5 mg IVPUSH ASDIRECTED PRN PRN Reason: Itching Naloxone HCl (Naloxone 0.4 Mg/Ml Syringe) 0.1 mg IVPUSH ASDIRECTED PRN PRN Reason: Respiratory Depression Ondansetron HCl (Ondansetron 4 Mg/2 Ml Sdv) 4 mg IVPUSH Q6H PRN PRN Reason: Nausea Ondansetron HCl (Ondansetron 4 Mg/2 Ml Sdv) 4 mg IVPUSH ONETIME PRN PRN Reason: Nausea/Vomiting Ondansetron HCl (Ondansetron 4 Mg/2 Ml Sdv) 4 mg IVPUSH Q4H PRN PRN Reason: Nausea/Vomiting Oxycodone/Acetaminophen (Acetaminophen/Oxycodone 325-5 Mg Tab) 2 tab PO Q6H PRN PRN Reason: Pain (moderate 4-6) Oxycodone/Acetaminophen (Acetaminophen/Oxycodone 325-5 Mg Tab) 1 tab PO Q4H PRN PRN Reason: Pain (severe 7-10) Oxycodone/Acetaminophen (Acetaminophen/Oxycodone 325-5 Mg Tab) 2 tab PO Q4H PRN PRN Reason: Pain (severe 7-10) Oxytocin (Oxytocin 10 Units/1 Ml Sdv) 10 unit IM ASDIRECTED PRN PRN Reason: Excessive Vaginal Bleeding Sodium Chloride (Sodium Chloride 0.9% 10 Ml Syringe) 10 ml FLUSH ASDIRECTED PRN PRN Reason: Keep Vein Open Sodium Chloride (Sodium Chloride 0.9% 2.5 Ml Syringe) 2.5 ml FLUSH ASDIRECTED PRN PRN Reason: Keep Vein Open Sodium Chloride (Sodium Chloride 0.9% 10 Ml Sdv) 10 ml IV ASDIRECTED PRN PRN Reason: IV Use Discontinued Medications Bupivacaine HCl (Bupivacaine 0.25% 10 Ml Sdv) Confirm Administered Dose 10 ml .ROUTE .[facility] ONE Stop: 04/11/21 22:21 Butorphanol Tartrate (Butorphanol 1 Mg/Ml Sdv) 1 mg IVPUSH Q1H PRN PRN Reason: Pain (severe 7-10) Carboprost Tromethamine (Carboprost Tromethamine 250 Mcg/1 Ml Amp) 250 mcg IM ASDIRECTED PRN PRN Reason: Post Hemorrhage Cefazolin Sodium (Cefazolin 1 Gm Vial) Confirm Administered Dose 2 gm .ROUTE .[facility]-MED ONE Stop: 04/13/21 06:46 Citric Acid/Sodium Citrate (Citric Acid/Sodium Citrate Solution 30 Ml Cup) 30 ml PO ONETIME ONE Stop: 04/13/21 06:28 Oxytocin/Sodium Chloride (Oxytocin 30 Unit/500 Ml-Ns) 30 unit in 500 mls @ 500 mls/hr IV TITRATE [facility] Tranexamic Acid 1,000 mg/ (Sodium Chloride) 110 mls @ 660 mls/hr IV ONETIME PRN PRN Reason: Bleeding Lactated Ringer's (Ringers, Lactated) 1,000 mls @ 150 mls/hr IV ASDIRECTED [facility] Last Admin: 04/13/21 08:52 Dose: 150 mls/hr Documented by: Oxytocin/Sodium Chloride (Oxytocin 30 Unit/500 Ml-Ns) 30 unit in 500 mls @ 2 mls/hr IV TITRATE [facility]; Protocol Last Titration: 04/13/21 06:20 Dose: 0 munits/min, 0 mls/hr Documented by: Ropivacaine (Naropin 0.2%) Confirm Administered Dose 200 mls @ as directed .ROUTE .[facility]-MED ONE Stop: 04/11/21 22:21 Ropivacaine (Naropin 0.2%) Confirm Administered Dose 200 mls @ as directed .ROUTE .[facility]-MED ONE Stop: 04/12/21 12:21 Ropivacaine (Naropin 0.2%) Confirm Administered Dose 200 mls @ as directed .[facility] .STK-MED ONE Stop: 04/12/21 23:44 Cefazolin Sodium/Dextrose 2 gm (/ Premix) 50 mls @ 100 mls/hr IV ONETIME ONE Stop: 04/13/21 06:56 Sodium Chloride (Normal Saline) Confirm Administered Dose 20 mls @ as directed .ROUTE .[facility]-MED ONE Stop: 04/13/21 06:46 Ketorolac Tromethamine (Ketorolac 30 Mg/Ml Sdv) Confirm Administered Dose 30 mg .ROUTE .[facility]-MED ONE Stop: 04/13/21 08:23 Lidocaine (Lidocaine 2% 5 Ml Sdv) Confirm Administered Dose 5 ml .ROUTE .[facility]-MED ONE Stop: 04/13/21 06:34 Lidocaine HCl (Lidocaine 1% 50 Ml Mdv) 50 ml INJECT ONETIME PRN PRN Reason: Laceration repair Methylergonovine Maleate (Methylergonovine 0.2 Mg/1 Ml Amp) 0.2 mg IM ASDIRECTED PRN PRN Reason: Post Hemorrhage Misoprostol (Misoprostol 200 Mcg Tab) 200 mcg PO ONETIME PRN PRN Reason: Post Hemorrhage Misoprostol (Misoprostol 25 Mcg (1/4 Of 100 Mcg) Tab) 25 mcg VAG ONETIME PRN PRN Reason: Cervical Ripening Last Admin: 04/11/21 04:32 Dose: 25 mcg Documented by: Misoprostol (Misoprostol 25 Mcg (1/4 Of 100 Mcg) Tab) 25 mcg VAG Q4H PRN PRN Reason: Cervical Ripening Last Admin: 04/11/21 16:55 Dose: 25 mcg Documented by: Morphine Sulfate (Morphine Pf 10 Mg/10 Ml Sdv) Confirm Administered Dose 10 mg .ROUTE .STK-MED ONE Stop: 04/13/21 06:33 Nalbuphine HCl (Nalbuphine 10 Mg/1 Ml Vial) 10 mg IVPUSH Q1H PRN PRN Reason: Pain (severe 7-10) Naloxone HCl (Naloxone 0.4 Mg/Ml Syringe) 0.1 mg IVPUSH ONETIME PRN PRN Reason: Respiratory Depression Stop: 04/14/21 07:48 Ondansetron HCl (Ondansetron 4 Mg/2 Ml Sdv) Confirm Administered Dose 4 mg .ROUTE .STK-MED ONE Stop: 04/13/21 06:34 Oxytocin (Oxytocin 10 Units/1 Ml Sdv) Confirm Administered Dose 30 unit .ROUTE .STK-MED ONE Stop: 04/13/21 07:01 Sterile Water (Water For Irrigation,Sterile 1,000 Ml Container) 1,000 ml IRR ASDIRECTED PRN PRN Reason: delivery Terbutaline Sulfate (Terbutaline 1 Mg/Ml Sdv) 0.25 mg SUBCUT ASDIRECTED PRN PRN Reason: Tacysystole - Infant Interaction Infant Disposition, : at Bedside Feeding: Attempted ; Nursed Fair/Poor Support Person: Significant Other - Recovery Exam Fundal Tone: Firm Fundal Level: At Umbilicus Fundal Placement: Midline Lochia Amount: Scant Lochia Color: Rubra/Red Perineum Description: Intact, Minimal Bruising/Swelling Episiotomy/Laceration: Not Approximated Bladder Status: Indwelling Catheter in Place Urinary Elimination: Indwelling Catheter - Exam General: Alert, Oriented, Cooperative, No Acute Distress HEENT: Pupils Equal, Pupils Reactive, EOMI Neck: Supple, Trachea Midline, No JVD Lungs: Normal Respiratory Effort GI/Abdominal Exam: Soft, Non-Tender, No Distention Extremities: Normal Inspection, Normal Range of Motion, Non-Tender, No Pedal Edema Skin: Warm, Dry, Intact Wound/Incisions: Dressing Dry and Intact Neurological: No New Focal Deficit Psy/Mental Status: Alert, Normal Affect, Suicidal Ideation - Problem List Review Problem List Initiated/Reviewed/Updated: Yes - My Orders Last 24 Hours: My Active Orders 04/13/21 09:15 Intake and Output [RC] Q4H Notify Provider Intake and Out [RC] ASDIRECTED Notify Provider Vital Signs [RC] ASDIRECTED Acetaminophen/oxyCODONE [Percocet 325-5 MG] 1 tab PO Q4H PRN Acetaminophen/oxyCODONE [Percocet 325-5 MG] 2 tab PO Q4H PRN Ibuprofen [Motrin] 800 mg PO Q8H PRN Ketorolac [Toradol] 30 mg IVPUSH Q6H Lactated Ringers [Ringers, Lactated] 1,000 ml IV ASDIRECTED Lanolin [Lansinoh HPA] See Dose Instructions TOP ASDIRECTED PRN Methylergonovine [Methergine] 0.2 mg IM ONETIME PRN Ondansetron [Zofran] 4 mg IVPUSH Q4H PRN Oxytocin [Pitocin] 10 unit IM ASDIRECTED PRN Tranexamic Acid [Cyklokapron] 1,000 mg Sodium Chloride 0.9% [Normal Saline] 100 ml IV ONETIME bisacodyL [Dulcolax] 10 mg RECTAL ONETIME PRN diphenhydrAMINE [Benadryl] 25 mg IVPUSH Q6H PRN miSOPROStoL [Cytotec] 1,000 mcg RECTAL ONETIME PRN DVT/VTE Prophylaxis Reflex [OM.PC] Routine 04/13/21 09:16 Ambulate [RC] PER UNIT ROUTINE Communication Order [RC] PER UNIT ROUTINE Communication Order [RC] Per Unit Routine May Shower [RC] ASDIRECTED RT Incentive Spirometry [RC] Q2HWA Vital Signs [RC] PER UNIT ROUTINE Abdominal Binder [OM.PC] Per Unit Routine Assess Lochia [WOMSER] Per Unit Routine Assess Uterine Involution [WOMSER] Per Unit Routine Breast Pump [WOMSER] Per Unit Routine Peripheral IV Discontinue [OM.PC] Routine Sequential Compression Device [OM.PC] Per Unit Routine 04/13/21 09:17 Cooling Warming Measures [RC] ASDIRECTED Ice Therapy [OM.PC] Per Unit Routine 04/13/21 09:18 VTE/DVT Education [RC] PER UNIT ROUTINE 04/13/21 Lunch Regular Diet [DIET] 04/13/21 21:00 Docusate Sodium [Colace] 100 mg PO BID - Assessment Assessment:: 25yo POD1 s/p primary LTCS. - Plan Plan:: Vital stable Bleeding light, Hgb 7.1 today, denies s/s of anemia, will repeat tomorrow Ambulating and tolerating PO Plan for discharge home tomorrow
[2021-04-14] MEDS: Docusate Sodium 100 MG Cap PO SCH ×2 (09:49→22:10)
[2021-04-14] MEDS: Simethicone 80 MG Tab.Chew PO PRN (12:06)
[2021-04-14] MEDS: Acetaminophen/oxyCODONE 325-5 MG Tab PO PRN ×2 (15:27→19:47)
[2021-04-14] MEDS: Ibuprofen 800 MG Tab PO PRN (18:14)
[2021-04-15] MEDS: Simethicone 80 MG Tab.Chew PO PRN (00:27)
[2021-04-15] MEDS: Acetaminophen/oxyCODONE 325-5 MG Tab PO PRN ×4 (00:27→17:30)
[2021-04-15] MEDS: Ibuprofen 800 MG Tab PO PRN (04:28)
[2021-04-15] MEDS ORDERED: Iron Sucrose Complex 500 MG in Sodium Chloride 0.9% 250 ML IV ONE (07:45)
--- NOTE | 2021-04-15 12:23 | PCM.PNPP ---
- General Info Date of Service: 04/15/21 Subjective Update: 25yo P1 s/p Primary LTCS PPD2 , anemia secondary to blood loss , EBL from 1500ml She h/h this morning is 6.5/19 , patient is asymptomatic she is Patient offered blood this morning due to low h/h , she accepts. Functional Status: Reports: Pain Controlled, Tolerating Diet, Ambulating, Urinating - Review of Systems General: Reports: No Symptoms HEENT: Reports: No Symptoms Pulmonary: Reports: No Symptoms Cardiovascular: Reports: No Symptoms Gastrointestinal: Reports: No Symptoms Genitourinary: Reports: No Symptoms Musculoskeletal: Reports: No Symptoms Skin: Reports: No Symptoms Neurological: Reports: No Symptoms Psychiatric: Reports: No Symptoms - General Info Date of Service: 04/15/21 - Patient Data Vital Signs - Most Recent: Last Vital Signs Temp 36.8 C 04/15/21 11:24 Pulse 111 H 04/15/21 11:24 Resp 17 04/15/21 11:24 BP 134/80 04/15/21 11:24 Pulse Ox 97 04/15/21 11:24 Weight - Most Recent: 93.894 kg Lab Results - Last 24 Hours: Laboratory Results - last 24 hr 04/11/21 04/15/21 Range/Units 03:55 05:23 WBC 11.17 H (4.0-11.0) K/uL RBC 2.07 L (4.30-5.90) M/uL Hgb 6.5 L (12.0-16.0) g/dL Hct 19.1 L (36.0-46.0) % MCV 92.3 (80.0-98.0) fL MCH 31.4 (27.0-32.0) pg MCHC 34.0 (31.0-37.0) g/dL RDW Std Deviation 47.1 (28.0-62.0) fl RDW Coeff of June 14 (11.0-15.0) % Plt Count 207 (150-400) K/uL MPV 10.00 (7.40-12.00) fL Nucleated RBC % 0.0 /100WBC Nucleated RBCs # 0 K/uL RPR Non-Reac (Non-Reac) Med Orders - Current: Current Medications Albuterol (Albuterol 0.083% 2.5 Mg/3 Ml Neb Soln) 2.5 mg NEB ONETIME PRN PRN Reason: Wheezing Bisacodyl (Bisacodyl 10 Mg Supp) 10 mg RECTAL ONETIME PRN PRN Reason: Constipation Diphenhydramine HCl (Diphenhydramine 50 Mg/Ml Sdv) 12.5 mg IVPUSH Q2H PRN PRN Reason: Itching Diphenhydramine HCl (Diphenhydramine 50 Mg/Ml Sdv) 25 mg IVPUSH Q6H PRN PRN Reason: Itching or Nausea Last Admin: 04/13/21 10:50 Dose: 25 mg Documented by: Docusate Sodium (Docusate Sodium 100 Mg Cap) 100 mg PO BID [facility] Last Admin: 04/14/21 22:10 Dose: Not Given Documented by: Droperidol (Droperidol 5 Mg/2 Ml Sdv) 0.625 mg IVPUSH ONETIME PRN PRN Reason: Nausea/Vomiting Emollient Ointment (Lanolin 100% Cream 7 Gm Tube) 0 gm TOP ASDIRECTED PRN PRN Reason: Sore Nipples Last Admin: 04/14/21 03:13 Dose: 7 gm Documented by: Ephedrine Sulfate (Ephedrine 50 Mg/Ml Sdv) 10 mg IVPUSH Q5M PRN PRN Reason: Hypotension Fentanyl (Fentanyl 100 Mcg/2 Ml Sdv) 50 mcg IVPUSH Q1H PRN PRN Reason: Pain (severe 7-10) Fentanyl (Fentanyl 100 Mcg/2 Ml Sdv) 50 mcg IVPUSH Q5M PRN PRN Reason: Pain (mild 1-3) Hydromorphone HCl (Hydromorphone 2 Mg/Ml Syringe) 1 mg IVPUSH Q10M PRN PRN Reason: Pain (moderate 4-6) Lactated Ringer's (Ringers, Lactated) 1,000 mls @ 125 mls/hr IV ASDIRECTED [facility] Last Admin: 04/13/21 19:58 Dose: 125 mls/hr Documented by: Tranexamic Acid 1,000 mg/ (Sodium Chloride) 110 mls @ 660 mls/hr IV ONETIME PRN PRN Reason: Bleeding Ibuprofen (Ibuprofen 800 Mg Tab) 800 mg PO Q8H PRN PRN Reason: mild pain or fever Last Admin: 04/15/21 04:28 Dose: 800 mg Documented by: Methylergonovine Maleate (Methylergonovine 0.2 Mg/1 Ml Amp) 0.2 mg IM ONETIME PRN PRN Reason: Excessive Vaginal Bleeding Metoclopramide HCl (Metoclopramide 10 Mg/2 Ml Sdv) 10 mg IVPUSH ONETIME PRN PRN Reason: Nausea/Vomiting Misoprostol (Misoprostol 200 Mcg Tab) 1,000 mcg RECTAL ONETIME PRN PRN Reason: excessive bleeding Morphine Sulfate (Morphine 2 Mg/Ml Syringe) 2 mg IVPUSH Q10M PRN PRN Reason: Pain (severe 7-10) Last Admin: 04/13/21 10:09 Dose: 2 mg Documented by: Nalbuphine HCl (Nalbuphine 10 Mg/1 Ml Vial) 5 mg IVPUSH ASDIRECTED PRN PRN Reason: Itching Naloxone HCl (Naloxone 0.4 Mg/Ml Syringe) 0.1 mg IVPUSH ASDIRECTED PRN PRN Reason: Respiratory Depression Ondansetron HCl (Ondansetron 4 Mg/2 Ml Sdv) 4 mg IVPUSH Q6H PRN PRN Reason: Nausea Ondansetron HCl (Ondansetron 4 Mg/2 Ml Sdv) 4 mg IVPUSH ONETIME PRN PRN Reason: Nausea/Vomiting Ondansetron HCl (Ondansetron 4 Mg/2 Ml Sdv) 4 mg IVPUSH Q4H PRN PRN Reason: Nausea/Vomiting Oxycodone/Acetaminophen (Acetaminophen/Oxycodone 325-5 Mg Tab) 2 tab PO Q6H PRN PRN Reason: Pain (moderate 4-6) Last Admin: 04/15/21 11:22 Dose: 2 tab Documented by: Oxycodone/Acetaminophen (Acetaminophen/Oxycodone 325-5 Mg Tab) 1 tab PO Q4H PRN PRN Reason: Pain (severe 7-10) Last Admin: 04/15/21 00:27 Dose: 1 tab Documented by: Oxycodone/Acetaminophen (Acetaminophen/Oxycodone 325-5 Mg Tab) 2 tab PO Q4H PRN PRN Reason: Pain (severe 7-10) Last Admin: 04/15/21 06:26 Dose: 2 tab Documented by: Oxytocin (Oxytocin 10 Units/1 Ml Sdv) 10 unit IM ASDIRECTED PRN PRN Reason: Excessive Vaginal Bleeding Simethicone (Simethicone 80 Mg Tab.Chew) 160 mg PO BID PRN PRN Reason: Gas Last Admin: 04/15/21 00:27 Dose: 160 mg Documented by: Sodium Chloride (Sodium Chloride 0.9% 10 Ml Syringe) 10 ml FLUSH ASDIRECTED PRN PRN Reason: Keep Vein Open Sodium Chloride (Sodium Chloride 0.9% 2.5 Ml Syringe) 2.5 ml FLUSH ASDIRECTED PRN PRN Reason: Keep Vein Open Sodium Chloride (Sodium Chloride 0.9% 10 Ml Sdv) 10 ml IV ASDIRECTED PRN PRN Reason: IV Use Discontinued Medications Bupivacaine HCl (Bupivacaine 0.25% 10 Ml Sdv) Confirm Administered Dose 10 ml .ROUTE .[facility]-MED ONE Stop: 04/11/21 22:21 Butorphanol Tartrate (Butorphanol 1 Mg/Ml Sdv) 1 mg IVPUSH Q1H PRN PRN Reason: Pain (severe 7-10) Carboprost Tromethamine (Carboprost Tromethamine 250 Mcg/1 Ml Amp) 250 mcg IM ASDIRECTED PRN PRN Reason: Post Hemorrhage Cefazolin Sodium (Cefazolin 1 Gm Vial) Confirm Administered Dose 2 gm .ROUTE .[facility]-MED ONE Stop: 04/13/21 06:46 Citric Acid/Sodium Citrate (Citric Acid/Sodium Citrate Solution 30 Ml Cup) 30 ml PO ONETIME ONE Stop: 04/13/21 06:28 Oxytocin/Sodium Chloride (Oxytocin 30 Unit/500 Ml-Ns) 30 unit in 500 mls @ 500 mls/hr IV TITRATE [facility] Tranexamic Acid 1,000 mg/ (Sodium Chloride) 110 mls @ 660 mls/hr IV ONETIME PRN PRN Reason: Bleeding Lactated Ringer's (Ringers, Lactated) 1,000 mls @ 150 mls/hr IV ASDIRECTED [facility] Last Admin: 04/13/21 08:52 Dose: 150 mls/hr Documented by: Oxytocin/Sodium Chloride (Oxytocin 30 Unit/500 Ml-Ns) 30 unit in 500 mls @ 2 mls/hr IV TITRATE [facility]; Protocol Last Titration: 04/13/21 06:20 Dose: 0 munits/min, 0 mls/hr Documented by: Ropivacaine (Naropin 0.2%) Confirm Administered Dose 200 mls @ as directed .ROUTE .[facility]-MED ONE Stop: 04/11/21 22:21 Ropivacaine (Naropin 0.2%) Confirm Administered Dose 200 mls @ as directed .ROUTE .[facility]-MED ONE Stop: 04/12/21 12:21 Ropivacaine (Naropin 0.2%) Confirm Administered Dose 200 mls @ as directed .ROUTE .[facility] ONE Stop: 04/12/21 23:44 Cefazolin Sodium/Dextrose 2 gm (/ Premix) 50 mls @ 100 mls/hr IV ONETIME ONE Stop: 04/13/21 06:56 Sodium Chloride (Normal Saline) Confirm Administered Dose 20 mls @ as directed .ROUTE .[facility] ONE Stop: 04/13/21 06:46 Iron Sucrose 500 mg/ Sodium (Chloride) 275 mls @ 62.5 mls/hr IV ONETIME ONE Stop: 04/15/21 12:08 Ketorolac Tromethamine (Ketorolac 30 Mg/Ml Sdv) Confirm Administered Dose 30 mg .ROUTE .[facility] ONE Stop: 04/13/21 08:23 Ketorolac Tromethamine (Ketorolac 30 Mg/Ml Sdv) 30 mg IVPUSH Q6H [facility] Stop: 04/14/21 09:16 Last Admin: 04/14/21 09:46 Dose: 30 mg Documented by: Lidocaine (Lidocaine 2% 5 Ml Sdv) Confirm Administered Dose 5 ml .ROUTE .[facility] ONE Stop: 04/13/21 06:34 Lidocaine HCl (Lidocaine 1% 50 Ml Mdv) 50 ml INJECT ONETIME PRN PRN Reason: Laceration repair Methylergonovine Maleate (Methylergonovine 0.2 Mg/1 Ml Amp) 0.2 mg IM ASDIRECTED PRN PRN Reason: Post Hemorrhage Misoprostol (Misoprostol 200 Mcg Tab) 200 mcg PO ONETIME PRN PRN Reason: Post Hemorrhage Misoprostol (Misoprostol 25 Mcg (1/4 Of 100 Mcg) Tab) 25 mcg VAG ONETIME PRN PRN Reason: Cervical Ripening Last Admin: 04/11/21 04:32 Dose: 25 mcg Documented by: Misoprostol (Misoprostol 25 Mcg (1/4 Of 100 Mcg) Tab) 25 mcg VAG Q4H PRN PRN Reason: Cervical Ripening Last Admin: 04/11/21 16:55 Dose: 25 mcg Documented by: Morphine Sulfate (Morphine Pf 10 Mg/10 Ml Sdv) Confirm Administered Dose 10 mg .ROUTE .STK-MED ONE Stop: 04/13/21 06:33 Nalbuphine HCl (Nalbuphine 10 Mg/1 Ml Vial) 10 mg IVPUSH Q1H PRN PRN Reason: Pain (severe 7-10) Naloxone HCl (Naloxone 0.4 Mg/Ml Syringe) 0.1 mg IVPUSH ONETIME PRN PRN Reason: Respiratory Depression Stop: 04/14/21 07:48 Ondansetron HCl (Ondansetron 4 Mg/2 Ml Sdv) Confirm Administered Dose 4 mg .ROUTE .STK-MED ONE Stop: 04/13/21 06:34 Oxytocin (Oxytocin 10 Units/1 Ml Sdv) Confirm Administered Dose 30 unit .ROUTE .[facility]-MED ONE Stop: 04/13/21 07:01 Sterile Water (Water For Irrigation,Sterile 1,000 Ml Container) 1,000 ml IRR ASDIRECTED PRN PRN Reason: delivery Terbutaline Sulfate (Terbutaline 1 Mg/Ml Sdv) 0.25 mg SUBCUT ASDIRECTED PRN PRN Reason: Tacysystole - Interaction Disposition, : at Bedside Feeding: Attempted ; Nursed Fair/Poor Support Person: Significant Other - Recovery Exam Fundal Tone: Firm Fundal Level: 1 Fingerbreadths Below Umbilicus Fundal Placement: Midline Lochia Amount: Scant Lochia Color: Rubra/Red Perineum Description: Intact, Minimal Bruising/Swelling Episiotomy/Laceration: None Bladder Status: Voiding Urinary Elimination: Voided - Exam General: Alert HEENT: Pupils Equal Neck: Supple Lungs: Clear to Auscultation Cardiovascular: Regular Rate, Regular Rhythm GI/Abdominal Exam: Normal Bowel Sounds Extremities: Normal Inspection Wound/Incisions: Dressing Dry and Intact Neurological: No New Focal Deficit Psy/Mental Status: Alert, Normal Affect - Problem List & Annotations (1) delivery delivered SNOMED Code(s): 073889763 Code(s): O82 - ENCOUNTER FOR DELIVERY WITHOUT INDICATION Status: Acute Current Visit: Yes (2) Acute blood loss as cause of postoperative anemia SNOMED Code(s): 10516575582012797 Code(s): D62 - ACUTE POSTHEMORRHAGIC ANEMIA Status: Acute Current Visit: Yes - Problem List Review Problem List Initiated/Reviewed/Updated: Yes - My Orders Last 24 Hours: My Active Orders 04/15/21 09:19 Transfuse PRBC [Transfuse Red Blood Cells] [COMM] Urgent 04/15/21 11:30 RED BLOOD CELLS LP [BBK] Routine TYPE AND SCREEN [BBK] Routine - Assessment Assessment:: 25yo POD2 s/p primary LTCS, anemia with h/h < 6.5 , normal lochia - Plan Plan:: Recommend 1uPRBC , discharge after blood transfusion Ambulating and tolerating PO Discharge home after transfusion Discharge instructions given
== END 2021-04-15 17:48 | disposition home or self-care (01) | DRG 540 ==
LOC: MW.OBCHECK 03:02 → MW.OB 03:03 → MW.OBCHECK 04:04 → MW.OB 04:04 → OBSVTOIN 04-13 07:39 → MW.OB 04-13 15:43
PROVIDERS: ADMIT Obstetrics & Gynecology; ATTEND Obstetrics & Gynecology
PROC: 10D00Z1 Extraction of Products of Conception, Low, Open Approach (ICD-10-PCS; principal; 2021-04-13)
PROC: 3E0P7VZ Introduction of Hormone into Female Reproductive, Via Natural or Artificial Opening (ICD-10-PCS; 2021-04-13)
PROC: 10907ZC Drainage of Amniotic Fluid, Therapeutic from Products of Conception, Via Natural or Artificial Opening (ICD-10-PCS; 2021-04-13)
PROC: 3E033VJ Introduction of Other Hormone into Peripheral Vein, Percutaneous Approach (ICD-10-PCS; 2021-04-13)
PROC: 10H07YZ Insertion of Other Device into Products of Conception, Via Natural or Artificial Opening (ICD-10-PCS; 2021-04-13)
PROC: 30233N1 Transfusion of Nonautologous Red Blood Cells into Peripheral Vein, Percutaneous Approach (ICD-10-PCS; 2021-04-15)
DX: O36.63X0 Maternal care for excessive fetal growth, third trimester, not applicable or unspecified (principal); O98.52 Other viral diseases complicating childbirth; U07.1 COVID-19; O99.02 Anemia complicating childbirth; D62 Acute posthemorrhagic anemia; O67.9 Intrapartum hemorrhage, unspecified; Z3A.39 39 weeks gestation of pregnancy; Z37.0 Single live birth
CPT/HCPCS: 01967; 01968; 36415; 36430; 51702; 59025; 80053; 82570; 82803; 84156; 84550; 85014; 85018; 85027; 86592; 86850; 86900; 86901; 86920; 86921; 86922; A9270-GY; J0690; J1200; J1885; J2270; J2405; J2590; J2795; J3490; J7120; P9016

== ENCOUNTER 2024-01-08 09:33 | Day surgery (SDC) | payer BC ==
[~2024-01-08 09:33] MED LIST changes: +Albuterol 0.083% 2.5 MG/3 ML Neb Soln NEB PRN; +HYDROmorphone 1 MG/ML Syringe IVPUSH PRN; -Lactated Ringers 1,000 ML IV SCH; +Metoclopramide 10 MG/2 ML SDV IVPUSH PRN; +Morphine 2 MG/ML SYRINGE IVPUSH PRN; +Naloxone 0.4 MG/ML SDV IVPUSH PRN; +Ondansetron 4 MG/2 ML SDV IVPUSH PRN; +Scopalamine 1mg/3day Transdermal Patch TOP ONE; -Sodium Chloride 0.9% 10 ML SDV IV PRN; +Sodium Chloride 0.9% 20 ML SDV IV PRN; +droPERidol 5 MG/2 ML SDV IVPUSH PRN; +fentaNYL 50 MCG/ML SDV IVPUSH PRN; +propofoL 50 ML ONE
[2024-01-08] MEDS ORDERED: Ketorolac 30 MG/ML SDV ONE (09:47)
[2024-01-08] MEDS ORDERED: Dexamethasone 4 MG/ML 5 ML MDV ONE (09:47)
[2024-01-08] MEDS ORDERED: Ondansetron 4 MG/2 ML SDV ONE ×2 (09:47)
[2024-01-08] MEDS ORDERED: fentaNYL 100 MCG/2 ML SDV ONE (09:48)
[2024-01-08] MEDS ORDERED: Lidocaine 2% 5 ML SDV ONE (09:48)
[2024-01-08] MEDS ORDERED: Morphine 10 MG/ML SDV ONE (09:48)
[2024-01-08] MEDS ORDERED: Midazolam 1 MG/ML 2 ML SDV ONE (09:54)
[2024-01-08] MEDS: Lactated Ringers 1,000 ML IV SCH (10:07)
[2024-01-08] MEDS ORDERED: Glycopyrrolate 0.2 MG/ML SDV ONE (10:13)
[2024-01-08] MEDS ORDERED: Misoprostol 200 MCG Tab ONE (10:27)
== END 2024-01-08 12:15 | disposition home or self-care (01) ==
LOC: MW.SDS 09:33
PROVIDERS: ATTEND Obstetrics & Gynecology
DX: O02.0 Blighted ovum and nonhydatidiform mole (principal); J45.909 Unspecified asthma, uncomplicated; Z3A.01 Less than 8 weeks gestation of pregnancy; Z79.899 Other long term (current) drug therapy
CPT/HCPCS: 59812; A9270; J0131; J1100; J1885; J2250; J2270; J2405; J2704; J3010; J3490; J7120; 01965